=== PATIENT | female | born 1970 | race Caucasian/White ===

== ENCOUNTER → 2020-10-04 | Outpatient (CLI) | payer OTHER ==
[~2020-10-04] MED LIST: CITALOPRAM HBR10 MG PO; COLACE100 MG PO; DEXILANT60 MG PO; ESTRADIOL2 MG PO; FISH OIL 1,0001 EACH PO; HYDROXYZINE PAM50 MG PO; LORATADINE10 MG PO; MIRALAX17 GM PO; MONTELUKAST SOD10 MG PO; NAPROXEN250 MG PO; NEURONTIN 300300 MG PO; NORCO 5-325 TA1 EACH PO; PREMARIN VAG CR30 GM EXT; RANITIDINE HCL150 M1 PO; SIMVASTATIN10 MG PO; SYNTHROID100 MCG PO; TIZANIDINE HCL4 MG PO; TRAMADOL-ACETA1 EACH PO; VIT B-12 PO; VIT D PO; WAL-PHED30 MG PO; ZYRTEC10 MG PO
== END ==
LOC: KOH-I 09:39
DX: M25.562 Pain in left knee (principal); M25.561 Pain in right knee; M17.0 Bilateral primary osteoarthritis of knee
CPT/HCPCS: 73562